=== PATIENT | male | born 1975 | race Caucasian/White ===

== ENCOUNTER 2017-08-10 22:12 | Emergency (ER) | payer BC, OTHER ==
--- NOTE | 2017-08-10 22:25 | CPEKG ---
Heart Rate: 49 RR Interval: 1224 P-R Interval: 124 QRSD Interval: 96 QT Interval: 440 QTC Interval: 398 P [place]: 12 QRS [place]: 55 T Wave [place]: 22 EKG Severity - OTHERWISE NORMAL ECG - EKG Impression: SINUS BRADYCARDIA Electronically Signed By: Jacques Gaona 10-Aug-2017 22:28:03
[2017-08-10] MEDS ORDERED: ASPIRIN 81 MG CHEWABLE TAB PO ONE (22:36)
[2017-08-10] MEDS ORDERED: NS 1,000 ML IV ONE (22:36)
--- NOTE | 2017-08-10 22:39 | EDPHY ---
H & P Stated Complaint: Faint, dizzy, L side chest pain Time Seen by Provider: 08/10/17 22:27 HPI/ROS: CHIEF COMPLAINT: Left-sided chest pain HISTORY OF PRESENT ILLNESS: Patient is a 42-year-old healthy man who comes to the emergency department this daughter complaining of left-sided chest pain that began about an hour ago. He states that he felt a cramping/shocking sensation in his left chest about an hour ago and then developed lightheadedness and shortness of breath because of it. He states that he had tingling in his lips and hands. He had this once last week and resolved spontaneously. He is worried because he feels something cramping in his chest and thinks that it is an artery getting clogged. No fever. No nausea vomiting. No diaphoresis. REVIEW OF SYSTEMS: Constitutional: denies: chills, fever, recent illness, recent injury EENTM: denies: blurred vision, double vision, nose congestion Respiratory: denies: cough, shortness of breath Cardiac: See HPI Gastrointestinal/Abdominal: denies: abdominal pain, diarrhea, nausea, vomiting, blood streaked stools Genitourinary: denies: dysuria, frequency, hematuria, pain Musculoskeletal: denies: joint pain, muscle pain Skin: denies: lesions, rash, jaundice, bruising Neurological: denies: headache, numbness, paresthesia, tingling, dizziness, weakness Hematologic/Lymphatic: denies: blood clots, easy bleeding, easy bruising Immunologic/allergic: denies: HIV/AIDS, transplant EXAM: GENERAL: Well-appearing, well-nourished and in no acute distress. HEAD: Atraumatic, normocephalic. EYES: Pupils equal round and reactive to light, extraocular movements intact, sclera anicteric, conjunctiva are normal. ENT: TMs normal, nares patent, oropharynx clear without exudates. Moist mucous membranes. NECK: Normal range of motion, supple without lymphadenopathy or JVD. LUNGS: Breath sounds clear to auscultation bilaterally and equal. No wheezes rales or rhonchi. HEART: Regular rate and rhythm without murmurs, rubs or gallops. ABDOMEN: Soft, nontender, normoactive bowel sounds. No guarding, no rebound. No masses appreciated. BACK: No CVA tenderness, no spinal tenderness, step-offs or deformities EXTREMITIES: Normal range of motion, no pitting or edema. No clubbing or cyanosis. NEUROLOGICAL: Cranial nerves II through XII grossly intact. Normal speech, normal gait. 5/5 strength, normal movement in all extremities, normal sensation PSYCH: Normal mood, normal affect. SKIN: Warm, dry, normal turgor, no visible rashes or lesions. Source: Patient Exam Limitations: No limitations - Personal History Current Tetanus Diphtheria and Acellular Pertussis (TDAP): Yes Tetanus Vaccine Date: 2016 - Medical/Surgical History Hx Asthma: No Hx Chronic Respiratory Disease: No Hx Diabetes: No Hx Cardiac Disease: No Hx Renal Disease: No Hx Cirrhosis: No Hx Alcoholism: No Hx HIV/AIDS: No Hx Splenectomy or Spleen Trauma: No - Family History Significant Family History: No pertinent family hx - Social History Smoking Status: Never smoked Alcohol Use: Sober Drug Use: None Constitutional: Initial Vital Signs Temperature (C) 36.8 C 08/10/17 22:15 Heart Rate 56 L 08/10/17 22:15 Respiratory Rate 20 08/10/17 22:15 Blood Pressure 144/100 H 08/10/17 22:15 O2 Sat (%) 95 08/10/17 22:15 O2 Delivery Mode Room Air Allergies/Adverse Reactions: No Known Allergies Allergy (Unverified 08/10/17 22:15) Home Medications: Medication Instructions Recorded LORazepam [Ativan 1 mg (RX)] 1 mg PO Q6-8PRN PRN #7 tab 08/11/17 Medical Decision Making - Diagnostics EKG Interpretation: An EKG obtained and was read and documented in trace view. Please see trace view for full reading and report. Sinus bradycardia, no acute ischemic changes Imaging Results: Imaging Impressions Chest X-Ray 08/10/17 22:37 Impression: No acute findings in the chest. Imaging: Discussed imaging studies w/ scallop binder Radiologist ED Course/Re-evaluation: PERC score negative. 12:25 a.m. the patient's troponin and lab work and imaging is negative. He feels much better and thinks that this was likely an anxiety attack. He is asking for antianxiety medications. I will give him a small prescription of Ativan. I will have him follow up with dental financial coordinator for stress testing although I think cardiac etiology is unlikely. The patient understands and agrees with this plan. Differential Diagnosis: Partial list of the Differential diagnosis considered include but were not limited to; pleurisy, acute coronary disease, anxiety, arrhythmia and although unlikely based on the history and physical exam, I also considered PE, dissection, GERD. I discussed these differential diagnoses and the plan with the patient as well as the usual and expected course. The patient understands that the diagnosis is provisional and that in medicine we are not always correct and that further workup is often warranted. Usual and customary warnings were given. All of the patient's questions were answered. The patient was instructed to return to the emergency department should the symptoms at all worsen or return, otherwise to followup with the physician as we discussed. - Data Points Laboratory Results: Laboratory Results 08/10/17 22:50 08/10/17 22:50 08/10/17 08/10/17 08/10/17 22:50 22:50 22:50 WBC 5.85 10^3/uL 10^3/uL (3.80-9.50) RBC 4.72 10^6/uL 10^6/uL (4.40-6.38) Hgb 16.6 g/dL g/dL (13.7-17.5) Hct 44.7 % % (40.0-51.0) MCV 94.7 fL fL (81.5-99.8) MCH 35.2 pg H pg (27.9-34.1) MCHC 37.1 g/dL H g/dL (32.4-36.7) RDW 12.0 % % (11.5-15.2) Plt Count 228 10^3/uL 10^3/uL (150-400) MPV 9.9 fL fL (8.7-11.7) Neut % (Auto) 40.1 % % (39.3-74.2) Lymph % (Auto) 45.5 % H % (15.0-45.0) [place] % (Auto) 10.3 % % (4.5-13.0) Eos % (Auto) 2.7 % % (0.6-7.6) Baso % (Auto) 0.9 % % (0.3-1.7) Nucleat RBC Rel Count 0.0 % % (0.0-0.2) Absolute Neuts (auto) 2.35 10^3/uL 10^3/uL (1.70-6.50) Absolute Lymphs (auto) 2.66 10^3/uL 10^3/uL (1.00-3.00) Absolute Monos (auto) 0.60 10^3/uL 10^3/uL (0.30-0.80) Absolute Eos (auto) 0.16 10^3/uL 10^3/uL (0.03-0.40) Absolute Basos (auto) 0.05 10^3/uL 10^3/uL (0.02-0.10) Absolute Nucleated RBC 0.00 10^3/uL 10^3/uL (0-0.01) Immature Gran % 0.5 % % (0.0-1.1) Immature Gran # 0.03 10^3/uL 10^3/uL (0.00-0.10) PT 13.5 SEC SEC (12.0-15.0) INR 1.01 (0.83-1.16) APTT 30.9 SEC SEC (23.0-38.0) Sodium 138 mEq/L mEq/L (135-145) Potassium 3.6 mEq/L mEq/L (3.5-5.2) Chloride 103 mEq/L mEq/L (97-110) Carbon Dioxide 20 mEq/l L mEq/l (22-31) Anion Gap 15 mEq/L mEq/L (8-16) BUN 16 mg/dL mg/dL (7-23) Creatinine 0.8 mg/dL mg/dL (0.7-1.3) Estimated GFR > 60 Glucose 104 mg/dL H mg/dL (70-100) Calcium 9.0 mg/dL mg/dL (8.5-10.4) Troponin I < 0.012 ng/mL ng/mL (0.000-0.034) Medications Given: Discontinued Medications Aspirin (Aspirin) 324 mg PO EDNOW ONE Stop: 08/10/17 22:37 Last Admin: 08/10/17 22:50 Dose: 324 mg Sodium Chloride (Ns) 1,000 mls @ 0 mls/hr IV EDNOW ONE; Wide Open PRN Reason: Protocol Stop: 08/10/17 22:37 Last Admin: 08/10/17 22:49 Dose: 1,000 mls Lorazepam (Ativan 1 Mg Prepack#4) 1 btl TAKEMELLY EDNOW ONE Stop: 08/11/17 00:29 Last Admin: 08/11/17 00:45 Dose: 1 btl Departure - Departure Disposition: Home, Routine, Self-Care Clinical Impression: Anxiety about health Chest pain Qualifiers: Chest pain type: chest pain on breathing Qualified Code(s): R07.1 - Chest pain on breathing; R07.81 - Pleurodynia Condition: Fair Instructions: Lorazepam (By mouth), Chest Pain (ED), Pleurisy (ED), Anxiety (ED ) Referrals: NONE *PRIMARY CARE P,. [Primary Care Provider] - As per Instructions Garcia Wagner MD [Medical Doctor] - As per Instructions Prescriptions: LORazepam [Ativan 1 mg (RX)] 1 mg PO Q6-8PRN PRN #7 tab PRN Reason: *Anxiety/Agitation/Insomnia
[2017-08-10 23:01] LABS: PLATELET COUNT 228 10^3/uL (150-400)
[2017-08-10 23:14] LABS: INR 1.01 (0.83-1.16); PROTIME(PATIENT) 13.5 SEC (12.0-15.0)
[2017-08-11] MEDS ORDERED: LORAZEPAM 1 MG PREPACK#4 BTL TAKEHOME ONE (00:28)
[2017-08-11 00:57] VITALS: RESP 18; TEMP 98.4
[2017-08-11 01:01] VITALS: BP 164/74; PULSE 58; O2SAT 96
== END 2017-08-11 01:03 | disposition home or self-care (01) ==
DX: R07.81 Pleurodynia (principal); F41.9 Anxiety disorder, unspecified; E86.9 Volume depletion, unspecified; R07.1 Chest pain on breathing